=== PATIENT | male | born 1965 | race Caucasian/White ===

== ENCOUNTER 2022-09-26 04:10 | Day surgery (SDC) | payer OTHER ==
[2022-09-24 10:06] VITALS: BMI 27.1
[~2022-09-26 04:10] MED LIST: BUPIVACAINE HCL/PF 0.5% (5 MG/ML) 30 ML VIAL IJ ONE; LIDOCAINE 1%/EPI 1:100000 (20 ML MULTI DOSE VIAL) INF ONE
[2022-09-26] MEDS ORDERED: BUPIVACAINE HCL/PF 0.5% (5MG/ML) 10 ML VIAL ONE (10:06)
[2022-09-26] MEDS ORDERED: PROPOFOL 40 ML ONE (10:52)
[2022-09-26] MEDS ORDERED: MIDAZOLAM HCL 2 MG/2 ML SINGLE DOSE VIAL ONE (10:53)
[2022-09-26] MEDS ORDERED: BUPIVACAINE HCL/PF 0.5% (5 MG/ML) 30 ML VIAL IJ ONE (11:06)
[2022-09-26] MEDS ORDERED: LIDOCAINE 1%/EPI 1:100000 (20 ML MULTI DOSE VIAL) INF ONE (11:06)
[2022-09-26] MEDS ORDERED: ONDANSETRON 4 MG/2 ML VIAL IVPUSH PRN (11:37)
[2022-09-26] MEDS ORDERED: oxyCODONE HCL 5 MG TABLET PO PRN (11:37)
[2022-09-26] MEDS ORDERED: LACTATED RINGERS SOLUTION 1,000 ML IV SCH (11:45)
[2022-09-26 12:49] VITALS: RESP 18
[2022-09-26 14:12] VITALS: BP 146/93; PULSE 72; TEMP 97.5
== END 2022-09-26 14:17 | disposition home or self-care (01) ==
LOC: JASU-SURG 04:10
PROVIDERS: ATTEND Orthopaedic Surgery
PROC: 0SBC4ZZ Excision of Right Knee Joint, Percutaneous Endoscopic Approach (ICD-10-PCS; principal; 2022-09-26 11:30)
DX: M23.321 Other meniscus derangements, posterior horn of medial meniscus, right knee (principal); M65.861 Other synovitis and tenosynovitis, right lower leg
CPT/HCPCS: 94760